=== PATIENT | female | born 1985 | race African-American/Black ===

== ENCOUNTER 2018-05-02 20:58 | Emergency (ER) | payer BC ==
[2018-05-02] MEDS ORDERED: SILVER SULFADIAZINE 1% CREAM 400 GM TP PRN (22:10)
[2018-05-02] MEDS ORDERED: HYDROCODONE/ACETAMINOPHEN 5-325 MG (6 TAB/ER DISP) PO PRN (22:13)
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
[2018-05-02 23:38] VITALS: BP 158/96
== END 2018-05-02 22:50 | disposition home or self-care (01) ==
LOC: ER 20:58
DX: T22.112A Burn of first degree of left forearm, initial encounter (principal); T22.111A Burn of first degree of right forearm, initial encounter; T21.11XA Burn of first degree of chest wall, initial encounter; T20.16XA Burn of first degree of forehead and cheek, initial encounter; X08.8XXA Exposure to other specified smoke, fire and flames, initial encounter; W40.1XXA Explosion of explosive gases, initial encounter
CPT/HCPCS: 99283; J3490